=== PATIENT | male | born 1995 | race Caucasian/White ===

== ENCOUNTER 2020-11-02 13:19 | Emergency (ER) | payer OTHER, SELFPAY ==
[2020-11-02 13:19] VITALS: BP 148/102; PULSE 122; RESP 18; TEMP 36.6; O2SAT 96; BMI 44.9
--- NOTE | 2020-11-02 13:25 | PC.NURSE ---
Pt states he is unable to urinate at this time for UA.
--- NOTE | 2020-11-02 13:27 | CT_ITS ---
PROCEDURE: CT ABDOMEN PELVIS W CON CLINICAL INDICATION: abdominal pain Lower abdominal pain COMPARISON: CT CT ABDOMEN PELVIS WO CON from 10/13/2019 TECHNIQUE: IV Contrast: 75ML Isovue 370 Oral Contrast None Axial images obtained with sagittal and coronal reformats. All CT scans at the facility use one or more dose reduction, viz: automated exposure control, ma/kV adjustment per patient size (including targeted exams where dose is matched to indication, i.e. head), or iterative reconstruction technique. FINDINGS: LOWER THORAX: Atelectatic changes are present in the lingula. ABDOMEN & PELVIS: Liver, gallbladder, spleen, adrenal glands, and pancreas have an unremarkable appearance. No renal or ureteral calculi. No hydronephrosis. No evidence of appendicitis. There is focal thickening of the ascending colon with stranding of the pericolic fat consistent with acute diverticulitis. There is a small amount of contained extra colic gas at this area medially. There are mildly prominent lymph nodes in the right lower quadrant which may be reactive in nature. No distant free air is evident. No acute bony anomalies are evident. IMPRESSION: Findings are compatible with acute diverticulitis of the ascending colon with stranding of the pericolic fat and contained perforation. No abscess or distant free air is evident. Dictated by: Farhat Malone MD 11/02/2020 14:39 Farhat Malone MD in [place] 11/02/2020 14:39
--- NOTE | 2020-11-02 13:33 | HMH.EDGENADL ---
ED Disposition Clinical Impression: Diverticulitis large intestine Qualifiers: Diverticulitis bleeding: without bleeding Diverticulitis complication: with perforation Qualified Code(s): K57.20 - Diverticulitis of large intestine with perforation and abscess without bleeding Disposition: Home, Self-Care Condition on Discharge: Fair Additional Instructions: You have been evaluated for abdominal pain, diagnosed with diverticulitis. Please take antibiotics as prescribed. Follow-up with a primary care doctor on Wednesday for recheck. Return to the emergency department at once if you have worsening abdominal pain, fevers, vomiting, other concerns. Prescriptions: Ciprofloxacin HCl [Ciprofloxacin 500mg Tab] 500 mg PO BID #14 tab Transmission Status: Received by [id number] metroNIDAZOLE [Flagyl 500mg Tablet] 1,000 mg PO BID 7 Days #28 tab Transmission Status: Received by [id number] Referrals: PCP,No [Primary Care Provider] - Time of Disposition: 14:44 - Critical Care Critical Care Time: No Attestation: On , the high probability of a clinically significant, sudden or life threatening deterioration of the following system(s) required my full and direct attention, intervention and personal management. The time I documented below is in addition to time spent performing reported procedures but includes the following listed in this critical care notation. Medical Decision Making - Medical Records Medical records reviewed: Yes: I reviewed the patient's medical records. - Tahir Inquiry Pt receiving controlled substance: No Vital Signs: 11/02/20 13:19 11/02/20 14:46 11/02/20 15:12 Temperature 97.9 F Temperature Source Oral Pulse Rate [Left Radial] 122 H 107 H 108 H Respiratory Rate 18 Blood Pressure [Right Arm] 148/102 H 120/79 128/87 Blood Pressure Mean [Right Arm] 117 92 100 Blood Pressure Source [Right Arm] Automatic Cuff Automatic Cuff Automatic Cuff Blood Pressure Position [Right Arm] Sitting Sitting Sitting 02 Sat by Pulse Oximetry 96 96 96 Oxygen Delivery Method Room Air Room Air Room Air - Lab Data Lab Results 11/02/20 13:37: WBC 24.2 H*, RBC 5.38, Hgb 16.8, Hct 49.6, MCV 92.2, MCH 31.2, MCHC 33.9, RDW 12.6, Plt Count 382, MPV 6.9 L, Neut % (Auto) 76.3, Lymph % (Auto) 17.0, Collin % (Auto) 4.4, Eos % (Auto) 1.1, Baso % (Auto) 1.2, Neut # (Auto) 18.5 H, Lymph # (Auto) 4.1, Collin # (Auto) 1.1 H, Eos # (Auto) 0.3, Baso # (Auto) 0.3 H, Total Counted 100, Neutrophils % (Manual) 73, Lymphocytes % (Manual) 20, Monocytes % (Manual) 7, Platelet Estimate Normal, RBC Morphology Normal 11/02/20 13:37: Sodium 136, Potassium 4.0, Chloride 101, Carbon Dioxide 26, Anion Gap 13.0, BUN 11, Creatinine 0.90, Estimated Creat Clear 139, Estimated GFR 101, Est GFR ( Amer) 122, Glucose 113 H, Calcium 9.5, Total Bilirubin 1.8 H, AST 31, ALT 42, Alkaline Phosphatase 109, Total Protein 8.2, Albumin 4.6, Globulin 3.6 H, Albumin/Globulin Ratio 1.3, Lipase 80 Result diagrams: 11/02/20 13:37 11/02/20 13:37 Orders (Tests/Meds): ED MEDICATIONS Generic Name Dose Route Start Last Admin Trade Name Freq PRN Reason Stop Dose Admin Sodium Chloride 1,000 mls @ 999 mls/hr 11/02/20 14:45 11/02/20 14:51 Sod Chlor 0.9% 1000ml Bag IV 11/02/20 15:45 999 mls/hr .Q1H1M CINDY Administration Piperacillin Sod/Tazobactam 100 mls @ 200 mls/hr 11/02/20 14:45 11/02/20 14:53 Sod 4.5 gm/ Sodium Chloride IV 11/16/20 14:44 200 mls/hr Q8H CINDY Administration Protocol Discontinued Medications Generic Name Dose Route Start Last Admin Trade Name Freq PRN Reason Stop Dose Admin Iopamidol 75 ml 11/02/20 14:08 Iopamidol-370 (76%);100ml Bottle IV 11/02/20 14:09 ONCE ONE Sodium Chloride 10 ml 11/02/20 14:08 11/02/20 14:10 Sodium Chloride 0.9% 10ml Syr (Rad Only) IV 11/02/20 14:09 10 ml ONCE ONE Administration ORDERS Category Date Time Status UA [Urinalysis and Microscopic]
[2020-11-02 13:51] LABS: Basophils # 0.3 K/mm3 (0-0.2); Basophils % 1.2 % (0.1-2.0); Eosinophils # 0.3 K/mm3 (0.0-0.4); Eosinophils % 1.1 % (0.1-12.0); Hematocrit 49.6 % (42.0-52.0); Hemoglobin 16.8 g/dL (14.1-18.0); Lymphocytes # 4.1 K/mm3 (0.7-4.5); Mean Corpuscular HGB Conc 33.9 g/dL (31.8-35.4); Mean Corpuscular Hemoglobin 31.2 pg (27.0-31.2); Mean Corpuscular Volume 92.2 fl (80-94); Mean Platelet Volume 6.9 fl (7.4-10.4); Monocytes # 1.1 K/mm3 (0.1-1.0); Monocytes % 4.4 % (1.7-9.3); Neutrophils # 18.5 K/mm3 (1.8-7.8); Neutrophils % 76.3 % (37.0-80.0); Platelet Count 382 K/mm3 (142-424); Red Blood Count 5.38 M/mm3 (4.60-6.20); Red Cell Distribution Width 12.6 % (11.5-17.5); White Blood Count 24.2 K/mm3 (4.8-10.8)
[2020-11-02 13:52] LABS: Chloride 101 mmol/L (98-107)
--- NOTE | 2020-11-02 13:52 | PC.NURSE ---
Pt to rad.
[2020-11-02 13:53] LABS: MANUAL DIFFERENTIAL MANUAL DIFFERENTIAL (MANUAL DIFF); Sodium 136 mmol/L (136-145)
[2020-11-02 13:55] LABS: Alanine Aminotransferase 42 U/L (12-78); Alkaline Phosphatase 109 U/L (38-126); Aspartate Amino Transferase 31 U/L (17-59); Bilirubin,Total 1.8 mg/dl (0.2-1.3); Blood Urea Nitrogen 11 mg/dl (9-20); Carbon Dioxide 26 mmol/L (22.0-30.0); Creatinine Clearance Estimated 139 mL/min (50-200); Estimated Glomerular Filt Rate 101 ml/min (>60); GFR (African American) 122 ML/MIN (>60); Lipase 80 U/L (23-300)
[2020-11-02 13:56] LABS: Albumin Level 4.6 g/dl (3.5-5.0); Albumin/Globulin Ratio 1.3 (1.1-1.8); Calcium 9.5 mg/dl (8.4-10.2); Globulin 3.6 g/dL (1.3-3.2); Glucose 113 mg/dl (74-100); Total Protein,Serum 8.2 g/dl (6.3-8.2)
[2020-11-02 14:10] LABS: Lymphocytes % 20 % (10-50); Monocytes % 7 % (2-9); Neutrophils % 73 % (42-76); Platelet Estimate Normal; RBC Morphology Normal; Total Cells Counted 100
--- NOTE | 2020-11-02 14:37 | PC.NURSE ---
Dr Bunch speaking with Dr Malone at this time.
[2020-11-02 14:46] VITALS: BP 120/79; PULSE 107; O2SAT 96
[2020-11-02 15:12] VITALS: BP 128/87; PULSE 108; O2SAT 96
[2020-11-02 15:18] VITALS: BP 128/87; PULSE 96; RESP 19; TEMP 36.6; O2SAT 97
--- NOTE | 2020-11-02 15:35 | PC.NURSE ---
stated UA could be cancelled at this time.
[2020-11-02 16:03] VITALS: BP 145/90; PULSE 100; O2SAT 97
== END 2020-11-02 16:06 | disposition home or self-care (01) ==
PROVIDERS: Emergency Provider Emergency Medicine
DX: K57.20 Diverticulitis of large intestine with perforation and abscess without bleeding (principal); F17.210 Nicotine dependence, cigarettes, uncomplicated
CPT/HCPCS: 74177; 80053; 83690; 85007; 85025; 96365; 96367; 99283; J2543

== ENCOUNTER 2022-11-03 17:37 | Emergency (ER) | payer OTHER, SELFPAY ==
--- NOTE | 2022-11-03 17:52 | EXP.UTC ---
Discharge Plan Disposition Patient Disposition: Home, Self-Care Condition: Good Prescriptions Prescriptions: New methylprednisolone 4 mg Tablets,Dose Pack 4 mg PO DIRECTED Qty: 21 0RF dshbszxhhyxsxey-cvccrphzq-SY [Bromfed DM] 2-30-10 mg/5 mL Syrup 5 ml PO Q6H PRN (Reason: Cough) Qty: 240 0RF amoxicillin-pot clavulanate 875-125 mg Tablet 1 tab PO Q12H Qty: 20 0RF Referrals Follow up/Referrals: Provider,Referral, MD [Primary Care Provider] - See instructions Activity Restrictions/Add. Instructions Additional Instructions/Restrictions: Drink plenty of fluids. Take tylenol or ibuprofen for pain or fever. Take the medications as directed. Follow up with your regular doctor. GO TO THE ER FOR ANY WORSENING SYMPTOMS Clinical Impressions Clinical Impression: Otitis media Instructions Patient Instructions: Middle Ear Infection Discharge ED Provider: Tobin Godwin [facility] General Stated complaint: Congestion,Right earache Time Seen by Provider: 11/03/22 17:52 History of Present Illness Provider Complaint: He states that for the past 1 week he has had right ear pain. He has had sinus congestion and a cough also. Related Data Previous Rx's Medication Instructions Recorded amoxicillin 875 mg-potassium 1 tab PO Q12H #20 tabs 11/03/22 clavulanate 125 mg tablet onxvjbmxvliouwh-hssfkgzpcphjrbh-QQ 5 ml PO Q6H PRN Cough #240 mL 11/03/22 2 mg-30 mg-10 mg/5 mL oral syrup (Bromfed DM) methylprednisolone 4 mg tablets in 4 mg PO DIRECTED #21 tabs 11/03/22 a dose pack Allergies Allergy/AdvReac Type Severity Reaction Status Date / Time No Known Allergies Allergy Verified 11/03/22 18:09 [facility] Disclaimer: The information contained in this section may have been updated after the patient was seen, as this information can be updated by other users. Social History Smoking Status: Current every day smoker tobacco type: cigarettes packs per day: 1 alcohol intake: never current occupational status: employed Travel in the last 8 weeks: None ROS Obtained: Yes All systems reviewed & no additional complaints except as documented Constitutional Constitutional: Denies chills, Reports fever(s) and Reports poor appetite Eyes Eyes: Denies eye discharge ENT Ears, Nose, Mouth, and Throat: Denies ear discharge, Reports otalgia, Denies hearing loss, Denies sinus pain and Reports sore throat Cardiovascular Cardiovascular: Denies chest pain and Denies dyspnea Respiratory Respiratory: Denies chest congestion, Reports cough and Denies dyspnea Gastrointestinal Gastrointestingal: Denies abdominal pain, diarrhea, nausea or vomiting Musculoskeletal Musculoskeletal: Denies arthralgias Integumentary/Breasts Skin/Breast: Denies rash Physical Exam General General appearance: alert and in no apparent distress Head Head exam: atraumatic, normocephalic and normal inspection Eye Eye exam: Present normal appearance; Absent PERRL or EOMI ENT ENT exam: Present mucous membranes moist and normal external ear exam Expanded ENT Exam TM/Canal exam: Bilateral TM: erythema, bulging and effusion Nose exam: Absent sinus tenderness Nasal speculum exam: Bilateral: normal Mouth exam: Present normal external inspection and other; Absent drooling Teeth exam: Present normal inspection Throat exam: Present tonsillar erythema and tonsillomegaly Neck Neck exam: Present normal inspection, full ROM and trachea midline; Absent tenderness, meningismus or lymphadenopathy Chest Chest inspection: Present normal inspection and symmetric chest wall rise; Absent tenderness Respiratory Respiratory exam: Present normal lung sounds bilaterally; Absent respiratory distress, wheezes or stridor Cardiovascular Cardiovascular exam: Present regular rate, normal rhythm and normal heart sounds; Absent tachycardia or irregular rhythm Abdominal Exam Abdominal exam: Present sof
[2022-11-03 18:00] VITALS: BP 151/99; PULSE 91; RESP 22; TEMP 37.1; O2SAT 96; BMI 49.4
[2022-11-03 18:25] VITALS: BP 151/99; PULSE 91; RESP 19; TEMP 37.1; O2SAT 96
== END 2022-11-03 18:25 | disposition home or self-care (01) ==
PROVIDERS: Emergency Provider Nurse Practitioner Family
DX: H66.90 Otitis media, unspecified, unspecified ear (principal)
CPT/HCPCS: 99212; G0463

== ENCOUNTER 2023-03-09 17:36 | Emergency (ER) | payer OTHER, SELFPAY ==
[2023-03-09] VITALS (8 sets, daily range): BP systolic 124–160; BP diastolic 70–96; PULSE 91–110; RESP 16–25; TEMP 36.8; O2SAT 96–98; BMI 39.5
--- NOTE | 2023-03-09 17:36 | ECG_ITS ---
APPROVED REPORT Exam: Resting ECG HR:108 bpm ECG Measurements Heart Rate 108 AXES AK 144 P 39 QRSd 86 QRS 67 QT 305 T 42 QTc 369 Conclusion SINUS TACHYCARDIA LEFT ATRIALAbnormality NONSPECIFIC T-WAVE ABNORMALITY ABNORMAL RHYTHM ECG UNCONFIRMED REPORT Electronically signed by : Flako Ocasio MD 03/09/2023 20:08:11
--- NOTE | 2023-03-09 17:43 | XR_ITS ---
PROCEDURE INFORMATION: Exam: XR Chest Exam date and time: 03/09/2023 5:41 PM Age: 27 years old Clinical indication: Pain; Chest pressure; Additional info: Cp TECHNIQUE: Imaging protocol: Radiologic exam of the chest. Views: 2 views. COMPARISON: CT ABDOMEN PELVIS W CON 06/25/2021 13:56 FINDINGS: Lungs: Small lingula scar. Mild bibasilar atelectasis. Left lower lung opacities are nonspecific. Pleural spaces: Unremarkable. No pleural effusion. No pneumothorax. Heart/Mediastinum: Unremarkable. No cardiomegaly. Bones/joints: Unremarkable. IMPRESSION: Left lower lung opacities are nonspecific. Please exclude aspiration and infection clinically.
[2023-03-09 17:54] LABS: Basophils # 0.1 K/mm3 (0-0.2); Basophils % 0.6 % (0.1-2.0); Eosinophils # 0.3 K/mm3 (0.0-0.4); Eosinophils % 1.6 % (0.1-12.0); Hematocrit 43.6 % (42.0-52.0); Hemoglobin 14.6 g/dL (14.1-18.0); Lymphocytes # 3.8 K/mm3 (0.7-4.5); Lymphocytes % 22.4 % (10-50); Mean Corpuscular HGB Conc 33.6 g/dL (31.8-35.4); Mean Corpuscular Hemoglobin 30.5 pg (27.0-31.2); Mean Platelet Volume 7.2 fl (7.4-10.4); Monocytes # 0.7 K/mm3 (0.1-1.0); Neutrophils % 71.3 % (37.0-80.0); Platelet Count 373 K/mm3 (142-424); Red Blood Count 4.79 M/mm3 (4.60-6.20); Red Cell Distribution Width 12.9 % (11.5-17.5); White Blood Count 16.9 K/mm3 (4.8-10.8)
[2023-03-09 17:58] LABS: MANUAL DIFFERENTIAL MANUAL DIFFERENTIAL (MANUAL DIFF)
[2023-03-09 18:03] LABS: Alanine Aminotransferase 59 U/L (12-78); Albumin Level 3.8 g/dl (3.5-5.0); Albumin/Globulin Ratio 1.2 (1.1-1.8); Alkaline Phosphatase 118 U/L (38-126); Aspartate Amino Transferase 48 U/L (17-59); Bilirubin,Total 0.6 mg/dl (0.2-1.3); Blood Urea Nitrogen 10 mg/dl (9-20); Calcium 8.3 mg/dl (8.4-10.2); Carbon Dioxide 27 mmol/L (22.0-30.0); Chloride 94 mmol/L (98-107); Creatinine Clearance Estimated 262 mL/min (50-200); Estimated Glomerular Filt Rate 114 ml/min (>60); GFR (African American) 138 ML/MIN (>60); Globulin 3.2 g/dL (1.3-3.2); Glucose 177 mg/dl (74-100); Sodium 135 mmol/L (136-145)
--- NOTE | 2023-03-09 18:22 | PC.NURSE ---
rounded on pt no complaints at this time turned light off, at bedside
[2023-03-09 18:34] LABS: Troponin I < 0.01 ng/ml (0.00-0.034)
[2023-03-09 18:53] LABS: Eosinophils % 1 % (0-3); Lymphocytes % 27 % (10-50); Monocytes % 3 % (2-9); Neutrophils % 69 % (42-76); Platelet Estimate Normal; RBC Morphology Normal; Total Cells Counted 100
--- NOTE | 2023-03-09 19:18 | PC.NURSE ---
Dr. Sotomayor at
--- NOTE | 2023-03-09 19:19 | CT_ITS ---
PROCEDURE INFORMATION: Exam: CT Head Without Contrast Exam date and time: 03/09/2023 7:26 PM Age: 27 years old Clinical indication: Syncope and collapse; Additional info: Near syncope TECHNIQUE: Imaging protocol: Computed tomography of the head without contrast. Radiation optimization: All CT scans at this facility use at least one of these dose optimization techniques: automated exposure control; mA and/or kV adjustment per patient size (includes targeted exams where dose is matched to clinical indication); or iterative reconstruction. REPORTING DATA: Count of CT and Cardiac NM exams in prior 12 months: This patient has received 0 known CTs and 0 known cardiac nuclear medicine studies in the 12 months prior to the current study. COMPARISON: No relevant prior studies available. FINDINGS: Brain: Low-lying cerebellar tonsils. Cerebral ventricles: No ventriculomegaly. Paranasal sinuses: Mild mucosal thickening in the paranasal sinuses. Mastoid air cells: Visualized mastoid air cells are well aerated. Bones/joints: Unremarkable. No acute fracture. Soft tissues: Unremarkable. IMPRESSION: 1. No acute findings. 2. Low-lying cerebellar tonsils. This may represent a Chiari 1 type malformation, which can be symptomatic.
--- NOTE | 2023-03-09 19:25 | PC.NURSE ---
pt gone to RAD via wheelchair
--- NOTE | 2023-03-09 20:02 | HMH.EDCP ---
Discharge Plan Disposition Patient Disposition: Home, Self-Care Chief Complaint: Chest Pain Prescriptions Prescriptions: No Action methylprednisolone 4 mg Tablets,Dose Pack 4 mg PO DIRECTED Qty: 21 0RF jqqsiaoggoxldgt-ghddudxio-EN [Bromfed DM] 2-30-10 mg/5 mL Syrup 5 ml PO Q6H PRN (Reason: Cough) Qty: 240 0RF amoxicillin-pot clavulanate 875-125 mg Tablet 1 tab PO Q12H Qty: 20 0RF Referrals Follow up/Referrals: Provider,MD Don [Primary Care Provider] - See instructions Heather Reddy MD [Staff Physician] - See instructions Clinical Impressions Clinical Impression: Near syncope, Atypical chest pain, CHRISTO (obstructive sleep apnea), Arnold-Chiari malformation, type I Instructions Patient Instructions: DI for Atypical Chest Pain Discharge ED Provider: Bran (ED)Ramy Chest Pain HPI General Chief Complaint: Chest Pain Stated Complaint: CP Time Seen by Provider: 03/09/23 19:00 Mode of Arrival: Ambulatory Source of Information: Patient, Spouse and Medical Record Limitations: No Limitations Description of Symptoms (Recalled from ER Triage Doc. by RN): pt to ed c/o mid sternal chest pain. pt states he had a blackout episode at work that lasted approx 10-12 seconds. at the bedside states these episodes have been happening frequently and in some instances his left arm will go numb and tingle. on arrival to ed pt is co/o dizziness and weakness. History of Present Illness HPI narrative: this pt presents with multiple sx which include episodes of dizzyness and occ chest pain w/o syncope but over the last few months has episodes of zoning out which last a few minutes but no postural changes or def sz activity- pt with sx of christo and stop/bang of 7 complaint: chest pain Onset (ago): day(s) Duration: intermittent Activity at onset: during rest Pain location: left chest Severity: moderate Risk Factors for CAD: Family Hx of CAD and Smoking Treatments prior to or on arrival for Cardiac Chest Pain: none EDE Score for Non-Stemi Age of Patient: <30 years old Heart Rate: 90-109 bpm Systolic Blood Pressure: 120-139 mmhg Serum Creatinine: 0.80-1.19 mg/dl CHF Killip Class: I-No CHF Other Risk Factors: None Non-Stemi Risk Score: 56 Risk Stratification: 1-108 = Low Risk Related Data Home Medications Medication Instructions Recorded Confirmed No Known Home Medications 03/09/23 03/09/23 Allergies Allergy/AdvReac Type Severity Reaction Status Date / Time No Known Allergies Allergy Verified 11/03/22 18:09 [facility] Disclaimer: The information contained in this section may have been updated after the patient was seen, as this information can be updated by other users. Social History Smoking Status: Current every day smoker tobacco type: cigarettes packs per day: 1 alcohol intake: never current occupational status: employed Travel in the last 8 weeks: None ROS Obtained: Yes All systems reviewed & no additional complaints except as documented Physical Exam General General appearance: alert and obese Head Head exam: normocephalic Eye Eye exam: Present PERRL and EOMI ENT ENT exam: Present mucous membranes moist and other (no evid of tongue biting ) Neck Neck exam: Present trachea midline Respiratory Respiratory exam: Present normal lung sounds bilaterally; Absent respiratory distress Cardiovascular Cardiovascular exam: Present regular rate; Absent systolic murmur Abdominal Exam Abdominal exam: Present soft; Absent tenderness Extremities Exam Extremities exam: Present full ROM; Absent calf tenderness Neurological Exam Neurological exam: Present alert, oriented X3, CN II-XII intact and other (gcs=15); Absent motor sensory deficit Psychiatric Psychiatric exam: Present normal affect Skin Skin exam: Absent rash Medical Decision Making Medical Records Medical records reviewed: Yes I reviewed the patient's medical records.
--- NOTE | 2023-03-09 20:15 | PC.NURSE ---
Pt has returned from RAD. Second trop drawn and sent to lab.
[2023-03-09 20:45] LABS: Troponin I < 0.01 ng/ml (0.00-0.034)
== END 2023-03-09 20:50 | disposition home or self-care (01) ==
PROVIDERS: Emergency Provider Emergency Medicine
DX: R07.89 Other chest pain (principal); R55 Syncope and collapse; G47.33 Obstructive sleep apnea (adult) (pediatric); Q07.00 Arnold-Chiari syndrome without spina bifida or hydrocephalus; F17.210 Nicotine dependence, cigarettes, uncomplicated
CPT/HCPCS: 70450; 71046; 80053; 84484; 85007; 85025; 93005; 99285

== ENCOUNTER → 2023-03-24 13:45 | Outpatient (CLI) | payer OTHER, SELFPAY | PROVIDERS: PCP Physician Assistant; Visit Provider Physician Assistant | DX: R73.9 Hyperglycemia, unspecified (principal); R56.9 Unspecified convulsions; F39 Unspecified mood [affective] disorder | CPT/HCPCS: 82607; 82746; 84443 ==

== ENCOUNTER → 2023-03-29 07:34 | Outpatient (CLI) | payer OTHER, SELFPAY | PROVIDERS: PCP Physician Assistant; Visit Provider Nurse Practitioner Family | DX: R56.9 Unspecified convulsions (principal) ==

== ENCOUNTER → 2023-04-06 07:42 | Outpatient (CLI) | payer OTHER, SELFPAY | PROVIDERS: PCP Physician Assistant; Visit Provider Nurse Practitioner Family | DX: R56.9 Unspecified convulsions (principal); F39 Unspecified mood [affective] disorder; I10 Essential (primary) hypertension; E66.01 Morbid (severe) obesity due to excess calories; Z68.43 Body mass index [BMI] 50.0-59.9, adult; R06.81 Apnea, not elsewhere classified; R06.83 Snoring | CPT/HCPCS: 93306 ==

== ENCOUNTER → 2023-04-16 17:20 | Outpatient (CLI) | payer OTHER, SELFPAY | PROVIDERS: PCP Physician Assistant; Visit Provider Nurse Practitioner Family | DX: R06.81 Apnea, not elsewhere classified (principal); R06.83 Snoring; R56.9 Unspecified convulsions; I10 Essential (primary) hypertension; F39 Unspecified mood [affective] disorder | CPT/HCPCS: G0399 ==

== ENCOUNTER → 2023-05-05 09:19 | Outpatient (CLI) | payer OTHER, SELFPAY ==
[2023-05-05 09:25] LABS: MANUAL DIFFERENTIAL MANUAL DIFFERENTIAL (MANUAL DIFF)
[2023-05-05 09:50] LABS: Basophils # 0.2 K/mm3 (0-0.2); Basophils % 0.9 % (0.1-2.0); Eosinophils # 0.3 K/mm3 (0.0-0.4); Hematocrit 47.7 % (42.0-52.0); Hemoglobin 15.5 g/dL (14.1-18.0); Lymphocytes # 4.2 K/mm3 (0.7-4.5); Lymphocytes % 25.4 % (10-50); Mean Corpuscular HGB Conc 32.5 g/dL (31.8-35.4); Mean Corpuscular Volume 89.5 fl (80-94); Mean Platelet Volume 6.9 fl (7.4-10.4); Monocytes # 0.7 K/mm3 (0.1-1.0); Monocytes % 4.4 % (1.7-9.3); Neutrophils # 11.2 K/mm3 (1.8-7.8); Neutrophils % 67.4 % (37.0-80.0); Platelet Count 365 K/mm3 (142-424); Red Blood Count 5.32 M/mm3 (4.60-6.20); Red Cell Distribution Width 13.1 % (11.5-17.5); White Blood Count 16.6 K/mm3 (4.8-10.8)
[2023-05-05 10:35] LABS: Eosinophils % 2 % (0-3); Lymphocytes % 24 % (10-50); Monocytes % 4 % (2-9); Neutrophils % 70 % (42-76); Platelet Estimate Normal; RBC Morphology Normal; Total Cells Counted 100
== END ==
PROVIDERS: PCP Physician Assistant; Visit Provider Specialist
DX: R55 Syncope and collapse (principal); D72.829 Elevated white blood cell count, unspecified; E66.01 Morbid (severe) obesity due to excess calories; I10 Essential (primary) hypertension; R56.9 Unspecified convulsions; F39 Unspecified mood [affective] disorder; R06.81 Apnea, not elsewhere classified; R06.83 Snoring; Z68.43 Body mass index [BMI] 50.0-59.9, adult
CPT/HCPCS: 36415; 85007; 85014; 85018; 85048; 85049; 93270

== ENCOUNTER → 2023-05-20 13:04 | Outpatient (CLI) | payer OTHER, SELFPAY ==
[2023-05-20 12:31] LABS: MANUAL DIFFERENTIAL MANUAL DIFFERENTIAL (MANUAL DIFF)
[2023-05-20 13:04] LABS: Basophils # 0.1 K/mm3 (0-0.2); Basophils % 0.7 % (0.1-2.0); Eosinophils # 0.3 K/mm3 (0.0-0.4); Eosinophils % 1.9 % (0.1-12.0); Hematocrit 45.4 % (42.0-52.0); Hemoglobin 14.8 g/dL (14.1-18.0); Lymphocytes # 4.6 K/mm3 (0.7-4.5); Lymphocytes % 29.1 % (10-50); Mean Corpuscular HGB Conc 32.6 g/dL (31.8-35.4); Mean Corpuscular Hemoglobin 29.6 pg (27.0-31.2); Mean Corpuscular Volume 90.8 fl (80-94); Mean Platelet Volume 7.3 fl (7.4-10.4); Monocytes # 0.8 K/mm3 (0.1-1.0); Monocytes % 5.3 % (1.7-9.3); Platelet Count 362 K/mm3 (142-424); Red Cell Distribution Width 13.1 % (11.5-17.5); White Blood Count 15.9 K/mm3 (4.8-10.8)
[2023-05-20 13:19] LABS: Alanine Aminotransferase 59 U/L (12-78); Albumin Level 4.1 g/dl (3.5-5.0); Albumin/Globulin Ratio 1.5 (1.1-1.8); Alkaline Phosphatase 110 U/L (38-126); Anion Gap 13.4 mEq/L (5-15); Aspartate Amino Transferase 41 U/L (17-59); Bilirubin,Total 0.8 mg/dl (0.2-1.3); Blood Urea Nitrogen 13 mg/dl (9-20); Calcium 8.9 mg/dl (8.4-10.2); Carbon Dioxide 26 mmol/L (22.0-30.0); Chloride 105 mmol/L (98-107); Estimated Glomerular Filt Rate 99 ml/min (>60); GFR (African American) 120 ML/MIN (>60); Globulin 2.7 g/dL (1.3-3.2); Glucose 86 mg/dl (74-100); Potassium 4.4 mmoL/L (3.5-5.1); Sodium 140 mmol/L (136-145); Total Protein,Serum 6.8 g/dl (6.3-8.2)
[2023-05-20 16:22] LABS: Eosinophils % 1 % (0-3); Lymphocytes % 38 % (10-50); Monocytes % 7 % (2-9); Neutrophils % 54 % (42-76); Platelet Estimate Normal; RBC Morphology Normal; Total Cells Counted 100
[2023-05-22 12:30] LABS: Peripheral Smear Review Scanned Result
== END ==
PROVIDERS: PCP Physician Assistant; Visit Provider Nurse Practitioner Family
DX: D72.829 Elevated white blood cell count, unspecified (principal); I10 Essential (primary) hypertension
CPT/HCPCS: 80053; 85007; 85014; 85018; 85048; 85049

== ENCOUNTER → 2023-05-26 18:37 | Outpatient (CLI) | payer OTHER, SELFPAY | LOC: SL 18:38 | PROVIDERS: PCP Physician Assistant; Visit Provider Specialist | DX: G47.33 Obstructive sleep apnea (adult) (pediatric) (principal); R06.83 Snoring | CPT/HCPCS: G0399 ==

== ENCOUNTER 2025-01-03 20:33 | Emergency (ER) | payer OTHER, SELFPAY ==
[2025-01-03] VITALS (9 sets, daily range): BP systolic 134–155; BP diastolic 80–93; PULSE 94–101; RESP 16–20; TEMP 36.6–36.9; O2SAT 91–96; BMI 50.1
--- NOTE | 2025-01-03 20:45 | PC.NURSE ---
Pt awake alert and oriented Skin pink warm and dry Resp full and easy Speech clear and appropriate.
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
[2025-01-03] MEDS: METOCLOPRAMIDE 10MG TABLET 5 MG PO (21:37)
[2025-01-03] MEDS: IBUPROFEN 400 MG TABLET 800 MG PO (21:37)
[2025-01-03] MEDS: ACETAMINOPHEN 500MG TAB 1000 MG PO (21:37)
--- NOTE | 2025-01-03 22:05 | PC.NURSE ---
Pt back from CT
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
== END 2025-01-03 23:08 | disposition home or self-care (01) ==
PROVIDERS: Emergency Provider Emergency Medicine; PCP Physician Assistant
DX: S06.0XAA Concussion with loss of consciousness status unknown, initial encounter (principal); R51.9 Headache, unspecified; H53.8 Other visual disturbances; M79.10 Myalgia, unspecified site; R42 Dizziness and giddiness; F17.210 Nicotine dependence, cigarettes, uncomplicated; V89.2XXA Person injured in unspecified motor-vehicle accident, traffic, initial encounter; Y93.89 Activity, other specified; Y92.89 Other specified places as the place of occurrence of the external cause
CPT/HCPCS: 70450; 72125; 99285

== ENCOUNTER 2025-02-01 11:45 | Outpatient (CLI) | payer OTHER, SELFPAY ==
[2025-02-01 18:36] LABS: Basophils # 0.1 K/mm3 (0-0.2); Basophils % 0.6 % (0.1-2.0); Eosinophils # 0.4 K/mm3 (0.0-0.4); Eosinophils % 2.5 % (0.1-12.0); Hematocrit 44.4 % (42.0-52.0); Hemoglobin 14.8 g/dL (14.1-18.0); Lymphocytes # 4.5 K/mm3 (0.7-4.5); Lymphocytes % 30.5 % (10-50); Mean Corpuscular HGB Conc 33.3 g/dL (31.8-35.4); Mean Corpuscular Hemoglobin 30.1 pg (27.0-31.2); Mean Corpuscular Volume 90.4 fl (80-94); Mean Platelet Volume 9.1 fl (7.4-10.4); Monocytes # 0.8 K/mm3 (0.1-1.0); Monocytes % 5.4 % (1.7-9.3); Neutrophils % 60.6 % (37.0-80.0); Nucleated Red Blood Cells # 0 10^3/uL; Nucleated Red Blood Cells % 0 %; Platelet Count 372 K/mm3 (142-424); Red Blood Count 4.91 M/mm3 (4.60-6.20); Red Cell Distribution Width 12.7 % (11.5-17.5); White Blood Count 14.9 K/mm3 (4.8-10.8)
[2025-02-01 19:27] LABS: Chloride 100 mmol/L (98-107); Potassium 4.1 mmoL/L (3.5-5.1); Sodium 137 mmol/L (136-145)
[2025-02-01 19:29] LABS: Blood Urea Nitrogen 11 mg/dl (9-20); Estimated Glomerular Filt Rate 113 ml/min (>60); GFR (African American) 136 ML/MIN (>60)
[2025-02-01 19:30] LABS: Alanine Aminotransferase 36 U/L (12-78); Albumin/Globulin Ratio 1.3 (1.1-1.8); Alkaline Phosphatase 110 U/L (38-126); Anion Gap 15.1 mEq/L (5-15); Aspartate Amino Transferase 32 U/L (17-59); Bilirubin,Total 0.6 mg/dl (0.2-1.3); Calcium 9.3 mg/dl (8.4-10.2); Carbon Dioxide 26 mmol/L (22.0-30.0); Cholesterol 214 mg/dl (140-200); Globulin 3.1 g/dL (1.3-3.2); Glucose 84 mg/dl (74-100); Total Protein,Serum 7.1 g/dl (6.3-8.2); Triglycerides 232 mg/dl (30-150); VLDL Cholesterol 46 mg/dL (0-40)
[2025-02-01 19:31] LABS: Chol/HDL Ratio 7.6 (1-3.5); HDL Cholesterol 28 mg/dl (40-60)
[2025-02-01 19:45] LABS: 25-OH Vitamin D, Total 15.7 ng/mL (30-100); T4 (Thyroxine) 9.3 ug/dl (5.53-11.0); Triiodothryronine (T3) Uptake 32 % (23.5-40.5)
[2025-02-01 19:51] LABS: Direct LDL Cholesterol 151.92 mg/dL (100-129)
[2025-02-01 19:58] LABS: Thyroid Stimulating Hormone 1.65 uIU/mL (0.465-4.68)
[2025-02-01 21:57] LABS: Hemoglobin A1C 6.1 % (4.0-6.0)
== END 2025-02-01 23:59 | disposition home or self-care (01) ==
LOC: LAB.DROPOF 02-02 10:28
PROVIDERS: PCP Family Medicine; Visit Provider Family Medicine
DX: D72.829 Elevated white blood cell count, unspecified (principal); I10 Essential (primary) hypertension; E66.01 Morbid (severe) obesity due to excess calories; Z68.43 Body mass index [BMI] 50.0-59.9, adult; R53.83 Other fatigue; R73.9 Hyperglycemia, unspecified; Z13.1 Encounter for screening for diabetes mellitus
CPT/HCPCS: 80053; 80061; 82306; 83036; 84436; 84443; 84479; 85025

== ENCOUNTER 2025-08-03 10:04 | Outpatient (CLI) | payer OTHER, SELFPAY ==
[2025-08-03 20:55] LABS: Hematocrit 43.7 % (42.0-52.0); Hemoglobin 15.1 g/dL (14.1-18.0); Immature Granulocytes % 0.5 %; Mean Corpuscular HGB Conc 34.6 g/dL (31.8-35.4); Mean Corpuscular Hemoglobin 32.0 pg (27.0-31.2); Mean Corpuscular Volume 92.6 fl (80-94); Nucleated Red Blood Cells % 0 %; Platelet Count 331 K/mm3 (142-424); Red Blood Count 4.72 M/mm3 (4.60-6.20); Red Cell Distribution Width-SD 42.9 fL; White Blood Count 17.1 K/mm3 (4.8-10.8)
[2025-08-03 21:12] LABS: Hemoglobin A1C 5.7 % (4.0-6.0)
[2025-08-03 21:47] LABS: Alanine Aminotransferase 28 U/L (12-78); Albumin Level 4.0 g/dl (3.5-5.0); Albumin/Globulin Ratio 1.5 (1.1-1.8); Alkaline Phosphatase 119 U/L (38-126); Anion Gap 14.4 mEq/L (5-15); Aspartate Amino Transferase 25 U/L (17-59); Bilirubin,Total 1.0 mg/dl (0.2-1.3); Blood Urea Nitrogen 14 mg/dl (9-20); Calcium 8.9 mg/dl (8.4-10.2); Carbon Dioxide 26 mmol/L (22.0-30.0); Chloride 99 mmol/L (98-107); Cholesterol 194 mg/dl (140-200); Creatinine,Serum 0.80 mg/dl (0.66-1.25); Estimated Glomerular Filt Rate 112 ml/min (>60); GFR (African American) 136 ML/MIN (>60); Globulin 2.6 g/dL (1.3-3.2); Glucose 71 mg/dl (74-100); HDL Cholesterol 27 mg/dl (40-60); Potassium 4.4 mmoL/L (3.5-5.1); Sodium 135 mmol/L (136-145); Total Protein,Serum 6.6 g/dl (6.3-8.2); Triglycerides 97 mg/dl (30-150)
[2025-08-03 22:00] LABS: 25-OH Vitamin D, Total 14.0 ng/mL (30-100)
[2025-08-03 22:15] LABS: Thyroid Stimulating Hormone 1.44 uIU/mL (0.465-4.68)
--- OUTSIDE RECORDS SUMMARY | 2025-08-06 10:14 | XMS_ITS | Clinical Summary ---
Author Organization Healthcare Address [address] [place] [address] Care Team Providers Care Insurance Advisor Name Role Phone Unavailable Primary Care Provider Unavailabl e Social History Tobacco Use Types Packs/Day Years Used Date Smoking Tobacco: Never Assessed Sex and Gender Information Value Date Recorded Sex Assigned at Not on file Legal Sex Male 8:57 AM EDT Gender Identity Not on file Sexual Orientation Not on file Last Filed Vital Signs Vital Sign Reading Time Taken Comments Blood Pressure 146/76 04/06/2023 9:02 AM EDT Pulse 59 04/06/2023 9:02 AM EDT Temperature - - Respiratory Rate - - Oxygen Saturation - - Inhaled Oxygen Concentration - - Weight 176 kg (388 lb) 04/06/2023 9:02 AM EDT Height 182.9 cm (6') 04/06/2023 9:02 AM EDT Body Mass Index 52.62 04/06/2023 9:02 AM EDT Plan of Treatment Health Maintenance Due Date Last Done Comments [facility]-Depression Screening 1993 [facility]-/Child/Adol SDOH Screenings 1993 [facility]- SDOH Screenings 2011 [facility]-Adult SDOH Screenings 2011 [facility]-Varicella Vaccines (2 of 2 - 13+ 2-dose series) 06/02/2011 05/05/2011 [facility]-Hepatitis B Vaccines (1 of 3 - 19+ 3-dose series) 2012 HPV Vaccines (1 - 3-dose SCD M series) 2020 [facility]-DTaP,Tdap,and Td Vaccine s (2 - Td or Tdap) 05/05/2021 05/05/2011 [id number] Vaccine (1 - 20 24-25 season) 2025 [facility]-Influenza Vaccine (#1) 2025 [facility]-Zoster Vaccines (1 of 2) 2043 05/05/2011 [facility]-HIB Vaccines Aged Out No longer e ligible based on patient's age to complete this topic [facility]-Hepatitis A Vaccines Aged Out No longer eligible based on patient's age to complete this topic [facility]-IPV Vaccines Aged Out No longer e ligible based on patient's age to complete this topic [facility]-Pneumococcal Vaccine: Pediatrics (0 to 5 Years) and At-Risk Patients (6 to 49 Years) Aged Out No long er eligible based on patient's age to complete this topic [facility]-Rotavirus Vaccines Aged Out No lo nger eligible based on patient's age to complete this topic Insurance [employer] [facility] MEDICAID
== END 2025-08-03 23:59 ==
LOC: LAB.DROPOF 08-06 10:05
PROVIDERS: PCP Family Medicine; Visit Provider Family Medicine
DX: E78.5 Hyperlipidemia, unspecified (principal); E11.9 Type 2 diabetes mellitus without complications; E55.9 Vitamin D deficiency, unspecified
CPT/HCPCS: 80053; 80061; 82043; 82306; 82570; 83036; 84443; 85025